=== PATIENT | male | born 1940 | race Caucasian/White ===

== ENCOUNTER 2022-10-04 18:31 | Emergency (ER) | payer MEDICARE, OTHER ==
[~2022-10-04] VITALS: Ht 175.3 cm; Wt 90.4 kg
[2022-10-04 19:26] LABS: Basophils # (auto) 0 10 ^3/uL (0-0.2); Basophils % (auto) 0.7 % (0.0-2.0); Eosinophils # (auto) 0 10 ^3/uL (0-0.8); Eosinophils % (auto) 0.9 % (0.0-7.0); Hematocrit 37.7 % (41.0-53.0); Hemoglobin 12.5 g/dL (13.5-17.5); Lymphocytes # (auto) 1.1 10 ^3/uL (0.4-5.4); Lymphocytes % (auto) 20.9 % (10.0-50.0); Mean Corpuscular Hemoglobin 31.8 pg (28.0-32.0); Mean Corpuscular Hgb Conc. 33.3 g/dL (32.0-36.0); Mean Corpuscular Volume 95.4 fL (80.0-100.0); Monocytes # (auto) 0.6 10 ^3/uL (0-1.3); Monocytes % (auto) 11.2 % (0.0-12.0); Neutrophils # (auto) 3.4 10 ^3/uL (1.6-8.6); Neutrophils % (auto) 66.3 % (37.0-80.0); Nucleated Red Blood Cells % 0.1 %; Red Blood Cells 3.95 10^6/uL (4.5-5.90); Red Cell Distribution Width 14.1 % (11.8-14.3); White Blood Cell 5.1 10^3/uL (4.4-10.8)
[2022-10-04 19:52] LABS: Alanine Aminotransferase 26 U/L (7-40); Albumin 3.4 g/dL (3.2-4.8); Alkaline Phosphatase 80 U/L (46-116); Anion Gap 3.3 (5-15); Aspartate Aminotransferase 24 U/L (13-40); BUN/Creatinine Ratio 32.1 (10.0-20.0); Bilirubin, Total 0.5 mg/dL (0.2-1.0); Blood Urea Nitrogen 44 mg/dL (9-23); Calcium 8.2 mg/dL (8.5-10.1); Carbon Dioxide 27.7 mmol/L (20-30); Chloride 105 mmol/L (98-107); Glucose 115 mg/dL (74-106); Sodium 136 mmol/L (136-145); Total Protein 5.2 g/dL (5.7-8.2)
[2022-10-04] MEDS ORDERED: SODIUM CHLORIDE 0.9% 500 ML IV ONE (20:00)
[2022-10-04 22:35] VITALS: BP 107/71; PULSE 73; RESP 18; TEMP 98; O2SAT 97
== END 2022-10-04 22:42 | disposition home or self-care (01) ==
LOC: EDBD 18:31 → ER 18:31
DX: I95.9 Hypotension, unspecified (principal); E86.0 Dehydration; I10 Essential (primary) hypertension
CPT/HCPCS: 36415; 71045; 80053; 84484; 85025; 93005; 96360; 99285; J7040

== ENCOUNTER 2023-02-16 14:35 | Inpatient (IN) | payer MEDICARE, OTHER ==
[~2023-02-16] VITALS: Ht 175.3 cm; Wt 94.6 kg
[2023-02-16 15:30] LABS: Basophils # (auto) 0 10 ^3/uL (0-0.2); Basophils % (auto) 0.6 % (0.0-2.0); Eosinophils # (auto) 0.1 10 ^3/uL (0-0.8); Eosinophils % (auto) 0.8 % (0.0-7.0); Hematocrit 43.3 % (41.0-53.0); Lymphocytes # (auto) 0.9 10 ^3/uL (0.4-5.4); Lymphocytes % (auto) 12.2 % (10.0-50.0); Mean Corpuscular Hemoglobin 31.8 pg (28.0-32.0); Mean Corpuscular Hgb Conc. 32.3 g/dL (32.0-36.0); Mean Corpuscular Volume 98.4 fL (80.0-100.0); Monocytes # (auto) 0.6 10 ^3/uL (0-1.3); Monocytes % (auto) 7.6 % (0.0-12.0); Neutrophils # (auto) 6.1 10 ^3/uL (1.6-8.6); Neutrophils % (auto) 78.8 % (37.0-80.0); Red Cell Distribution Width 15.2 % (11.8-14.3); White Blood Cell 7.7 10^3/uL (4.4-10.8)
[2023-02-16 15:50] VITALS: PULSE 72; RESP 20; O2SAT 99
[2023-02-16 15:53] LABS: Alanine Aminotransferase 31 U/L (7-40); Albumin 4.1 g/dL (3.2-4.8); Alkaline Phosphatase 77 U/L (46-116); Anion Gap 4 (5-15); Aspartate Aminotransferase 42 U/L (13-40); BUN/Creatinine Ratio 17.6 (10.0-20.0); Blood Urea Nitrogen 28 mg/dL (9-23); Calcium 9.5 mg/dL (8.5-10.1); Carbon Dioxide 30 mmol/L (20-30); Chloride 105 mmol/L (98-107); Glucose 109 mg/dL (74-106); Sodium 139 mmol/L (136-145)
[2023-02-16 15:54] LABS: Bilirubin, Total 0.9 mg/dL (0.2-1.0); Total Protein 6.3 g/dL (5.7-8.2)
[2023-02-16] MEDS ORDERED: HYDROcodone-ACET 5/325MG TAB PO PRN (16:30)
[2023-02-16] MEDS ORDERED: ONDANSETRON HCL 4 MG/2 ML VIAL IV PRN (16:30)
[2023-02-16] MEDS ORDERED: ACETAMINOPHEN 325 MG TAB PO PRN (16:30)
[2023-02-16] MEDS ORDERED: NITROGLYCERIN 0.4 MG SL TAB SL PRN (16:30)
[2023-02-16] MEDS ORDERED: DOCUSATE SOD 100 MG CAP PO PRN (16:30)
[2023-02-16] MEDS ORDERED: MORPHINE SULFATE INJ 2 MG/ml SYRG IV PRN ×2 (16:30)
[2023-02-16] MEDS ORDERED: METO25TA93 PO (17:00)
[2023-02-16] MEDS ORDERED: DONE1TAB88 PO (17:00)
[2023-02-16] MEDS ORDERED: WARF-66 PO (17:00)
[2023-02-16] MEDS ORDERED: BUME1TAB3 PO (17:00)
[2023-02-16] MEDS ORDERED: LOVA40TA72 PO (17:00)
[2023-02-16 17:30] LABS: INR 3.45 (0.9-1.15); Prothrombin Time 33.4 sec (9.3-11.8)
[2023-02-16 20:00] VITALS: PULSE 77; RESP 18; O2SAT 92
[2023-02-16] MEDS: BUMETANIDE 1 MG TAB PO SCH (21:22)
[2023-02-16] MEDS: DONEPEZIL HYDROCHLORIDE 5 MG TAB PO SCH (21:22)
[2023-02-16] MEDS: SODIUM CHLOR 0.9% PF (SALINE LOCK) 10ML VIAL/SYR IV SCH (21:23)
[2023-02-16] MEDS ORDERED: SACU1TAB PO (21:29)
[2023-02-16] MEDS: LOVASTATIN 40 MG PO SCH (21:57)
[2023-02-16] MEDS: SACUBITRIL-VALSARTAN 24mg/26mg TAB PO SCH (22:22)
[2023-02-17] VITALS (15 sets, daily range): BP systolic 85–102; BP diastolic 42–60; PULSE 71–87; RESP 16–18; TEMP 97.3–98.4; O2SAT 93–97
[2023-02-17] MEDS: BUMETANIDE 1 MG TAB PO SCH ×3 (06:00→21:47)
[2023-02-17] MEDS: SODIUM CHLOR 0.9% PF (SALINE LOCK) 10ML VIAL/SYR IV SCH ×3 (06:44→21:48)
[2023-02-17 09:38] LABS: Basophils # (auto) 0 10 ^3/uL (0-0.2); Basophils % (auto) 0.3 % (0.0-2.0); Eosinophils # (auto) 0 10 ^3/uL (0-0.8); Hematocrit 40.2 % (41.0-53.0); Hemoglobin 13.5 g/dL (13.5-17.5); Lymphocytes # (auto) 0.7 10 ^3/uL (0.4-5.4); Lymphocytes % (auto) 7.4 % (10.0-50.0); Mean Corpuscular Hemoglobin 32.5 pg (28.0-32.0); Mean Corpuscular Hgb Conc. 33.5 g/dL (32.0-36.0); Mean Corpuscular Volume 97.2 fL (80.0-100.0); Monocytes # (auto) 0.9 10 ^3/uL (0-1.3); Monocytes % (auto) 9.6 % (0.0-12.0); Neutrophils # (auto) 7.5 10 ^3/uL (1.6-8.6); Neutrophils % (auto) 82.7 % (37.0-80.0); Nucleated Red Blood Cells % 0.1 %; Red Blood Cells 4.14 10^6/uL (4.5-5.90); Red Cell Distribution Width 14.7 % (11.8-14.3)
[2023-02-17 09:52] LABS: INR 3.29 (0.9-1.15)
[2023-02-17] MEDS: METOPROLOL SUCCINATE 25 MG PO SCH (10:00)
[2023-02-17] MEDS: SACUBITRIL-VALSARTAN 24mg/26mg TAB PO SCH ×2 (10:04→21:43)
[2023-02-17 10:16] LABS: Alanine Aminotransferase 26 U/L (7-40); Alkaline Phosphatase 75 U/L (46-116); Anion Gap 7 (5-15); Aspartate Aminotransferase 32 U/L (13-40); Blood Urea Nitrogen 26 mg/dL (9-23); Calcium 9.5 mg/dL (8.5-10.1); Carbon Dioxide 27 mmol/L (20-30); Chloride 106 mmol/L (98-107); Glucose 128 mg/dL (74-106); Sodium 140 mmol/L (136-145)
[2023-02-17 10:17] LABS: Bilirubin, Total 1.5 mg/dL (0.2-1.0); Total Protein 6.2 g/dL (5.7-8.2)
[2023-02-17] MEDS ORDERED: BUDE1AER6 IN (13:01)
[2023-02-17] MEDS: DONEPEZIL HYDROCHLORIDE 5 MG TAB PO SCH (21:44)
[2023-02-17] MEDS: LOVASTATIN 40 MG PO SCH (21:48)
[2023-02-18] VITALS (11 sets, daily range): BP systolic 91–129; BP diastolic 43–87; PULSE 73–88; RESP 17–20; TEMP 36.7; O2SAT 93–100
[2023-02-18] MEDS: BUMETANIDE 1 MG TAB PO SCH ×3 (06:00→22:00)
[2023-02-18] MEDS: SODIUM CHLOR 0.9% PF (SALINE LOCK) 10ML VIAL/SYR IV SCH ×3 (06:20→22:24)
[2023-02-18 09:11] LABS: INR 2.09 (0.9-1.15); Prothrombin Time 20.9 sec (9.3-11.8)
[2023-02-18] MEDS: SACUBITRIL-VALSARTAN 24mg/26mg TAB PO SCH ×2 (10:00→23:12)
[2023-02-18] MEDS: METOPROLOL SUCCINATE 25 MG PO SCH (10:00)
[2023-02-18 14:33] LABS: INR 1.6 (0.9-1.15); Prothrombin Time 16.3 sec (9.3-11.8)
[2023-02-18] MEDS ORDERED: HEPARIN DRIP/D5W 100UNITS/ML 250 ML IV SCH (18:30)
[2023-02-18 21:59] LABS: INR 1.51 (0.9-1.15); Partial Thromboplastin Time 35.5 SEC (24.5-34.5); Prothrombin Time 15.4 sec (9.3-11.8)
[2023-02-18] MEDS: DONEPEZIL HYDROCHLORIDE 5 MG TAB PO SCH (22:00)
[2023-02-18] MEDS: LOVASTATIN 40 MG PO SCH (22:00)
[2023-02-18] MEDS: HEPARIN DRIP/D5W 100UNITS/ML 250 ML IV SCH (23:01)
[2023-02-19 05:00] VITALS: BP 109/62; PULSE 85; RESP 20; TEMP 97.9; O2SAT 96
[2023-02-19] MEDS: SODIUM CHLOR 0.9% PF (SALINE LOCK) 10ML VIAL/SYR IV SCH ×3 (05:53→22:01)
[2023-02-19] MEDS: BUMETANIDE 1 MG TAB PO SCH ×3 (05:53→21:51)
[2023-02-19 06:44] LABS: INR 1.51 (0.9-1.15); Prothrombin Time 15.4 sec (9.3-11.8)
[2023-02-19 06:47] LABS: Partial Thromboplastin Time 76.4 SEC (24.5-34.5)
[2023-02-19 08:00] VITALS: BP 112/63; PULSE 76; PULSE 77; RESP 21; TEMP 97.5; O2SAT 93
[2023-02-19] MEDS ORDERED: ceFAZolin 2 GM/D5W100ml 100 ML IV ONE (09:40)
[2023-02-19] MEDS: METOPROLOL SUCCINATE 25 MG PO SCH (10:00)
[2023-02-19] MEDS: SACUBITRIL-VALSARTAN 24mg/26mg TAB PO SCH ×2 (10:00→21:45)
[2023-02-19] MEDS ORDERED: ACETAMINOPHEN IV 100 ML IV ONE (10:16)
[2023-02-19] MEDS ORDERED: fentaNYL CITRATE 100 MCG/2 ML VL ONE (10:21)
[2023-02-19] MEDS ORDERED: PROPOFOL 10 MG/ML 20 ML IV ONE (10:22)
[2023-02-19] MEDS ORDERED: ePHEDrine SULFATE 50 MG/ML AMP ONE (10:38)
[2023-02-19] MEDS ORDERED: ROPIVACAINE 0.5% (5MG/ML) 20ML AMPULE IJ ONE (10:59)
[2023-02-19] MEDS ORDERED: MEPERIDINE HCL (25 MG/ML) 1ML VIAL ONE (11:02)
[2023-02-19] MEDS ORDERED: LACTATED RINGER'S 1,000 ML IV SCH (11:45)
[2023-02-19 11:51] VITALS: O2SAT 100
[2023-02-19 16:00] VITALS: BP 113/71; PULSE 84; RESP 20; TEMP 97.4; O2SAT 90
[2023-02-19] MEDS: ceFAZolin 1GM/50ML 50 ML IV SCH (17:54)
[2023-02-19 19:16] LABS: Alanine Aminotransferase 27 U/L (7-40); Albumin 3.6 g/dL (3.2-4.8); Alkaline Phosphatase 69 U/L (46-116); Anion Gap 6 (5-15); Aspartate Aminotransferase 30 U/L (13-40); BUN/Creatinine Ratio 26.7 (10.0-20.0); Bilirubin, Total 0.9 mg/dL (0.2-1.0); Blood Urea Nitrogen 28 mg/dL (9-23); Calcium 9.2 mg/dL (8.5-10.1); Carbon Dioxide 29 mmol/L (20-30); Chloride 104 mmol/L (98-107); Glucose 112 mg/dL (74-106); Potassium 3.7 mmol/L (3.5-5.1); Sodium 139 mmol/L (136-145); Total Protein 5.8 g/dL (5.7-8.2)
[2023-02-19 20:00] VITALS: PULSE 82; PULSE 88; RESP 18; O2SAT 94
[2023-02-19] MEDS: HEPARIN DRIP/D5W 100UNITS/ML 250 ML IV SCH (21:33)
[2023-02-19] MEDS: DONEPEZIL HYDROCHLORIDE 5 MG TAB PO SCH (21:45)
[2023-02-19 21:55] VITALS: BP 126/64; PULSE 88; RESP 18; TEMP 97.5; O2SAT 94
[2023-02-19] MEDS: LOVASTATIN 40 MG PO SCH (22:00)
[2023-02-20] VITALS (7 sets, daily range): BP systolic 86–98; BP diastolic 44–53; PULSE 68–91; RESP 18–22; TEMP 97.9–98.7; O2SAT 90–95
[2023-02-20 01:58] LABS: INR 1.57 (0.9-1.15); Partial Thromboplastin Time 66.3 SEC (24.5-34.5)
[2023-02-20] MEDS: ceFAZolin 1GM/50ML 50 ML IV SCH ×2 (02:00→10:09)
[2023-02-20] MEDS: SODIUM CHLOR 0.9% PF (SALINE LOCK) 10ML VIAL/SYR IV SCH ×3 (05:34→21:40)
[2023-02-20] MEDS: BUMETANIDE 1 MG TAB PO SCH ×3 (06:16→23:22)
[2023-02-20 07:06] LABS: Anion Gap 8 (5-15); Carbon Dioxide 25 mmol/L (20-30); Chloride 106 mmol/L (98-107); Potassium 4.2 mmol/L (3.5-5.1); Sodium 139 mmol/L (136-145)
[2023-02-20 07:12] LABS: BUN/Creatinine Ratio 24.7 (10.0-20.0); Blood Urea Nitrogen 23 mg/dL (9-23); Glucose 154 mg/dL (74-106)
[2023-02-20 07:15] LABS: INR 1.54 (0.9-1.15); Prothrombin Time 15.7 sec (9.3-11.8)
[2023-02-20 07:49] LABS: Partial Thromboplastin Time 74.2 SEC (24.5-34.5)
[2023-02-20] MEDS: METOPROLOL SUCCINATE 25 MG PO SCH (10:00)
[2023-02-20] MEDS: SACUBITRIL-VALSARTAN 24mg/26mg TAB PO SCH ×2 (10:10→22:00)
[2023-02-20 12:09] LABS: Basophils # (auto) 0 10 ^3/uL (0-0.2); Basophils % (auto) 0.1 % (0.0-2.0); Eosinophils # (auto) 0 10 ^3/uL (0-0.8); Eosinophils % (auto) 0.1 % (0.0-7.0); Hematocrit 32.8 % (41.0-53.0); Hemoglobin 10.8 g/dL (13.5-17.5); Lymphocytes # (auto) 0.6 10 ^3/uL (0.4-5.4); Lymphocytes % (auto) 5.8 % (10.0-50.0); Mean Corpuscular Hemoglobin 32.4 pg (28.0-32.0); Monocytes # (auto) 1.3 10 ^3/uL (0-1.3); Monocytes % (auto) 11.7 % (0.0-12.0); Neutrophils # (auto) 8.9 10 ^3/uL (1.6-8.6); Neutrophils % (auto) 82.3 % (37.0-80.0); Nucleated Red Blood Cells % 0.1 %; Red Blood Cells 3.35 10^6/uL (4.5-5.90); Red Cell Distribution Width 14.9 % (11.8-14.3); White Blood Cell 10.8 10^3/uL (4.4-10.8)
[2023-02-20 12:44] LABS: INR 1.6 (0.9-1.15); Prothrombin Time 16.3 sec (9.3-11.8)
[2023-02-20 12:54] LABS: Partial Thromboplastin Time 93.6 SEC (24.5-34.5)
[2023-02-20] MEDS: HEPARIN DRIP/D5W 100UNITS/ML 250 ML IV SCH ×2 (14:57→22:55)
[2023-02-20] MEDS ORDERED: LACTULOSE 20Gm/30ML SOLN PO ONE (16:30)
[2023-02-20] MEDS ORDERED: WARFARIN SODIUM 5 MG TAB PO ONE (17:00)
[2023-02-20] MEDS: DONEPEZIL HYDROCHLORIDE 5 MG TAB PO SCH (21:40)
[2023-02-20 21:49] LABS: INR 1.43 (0.9-1.15); Prothrombin Time 14.7 sec (9.3-11.8)
[2023-02-21] VITALS (8 sets, daily range): BP systolic 94–108; BP diastolic 51–66; PULSE 86–109; RESP 16–20; TEMP 97.8–98.5; O2SAT 88–95
[2023-02-21 02:56] LABS: Basophils # (auto) 0 10 ^3/uL (0-0.2); Basophils % (auto) 0.3 % (0.0-2.0); Eosinophils # (auto) 0 10 ^3/uL (0-0.8); Eosinophils % (auto) 0.1 % (0.0-7.0); Hemoglobin 10.3 g/dL (13.5-17.5); Lymphocytes # (auto) 1.2 10 ^3/uL (0.4-5.4); Lymphocytes % (auto) 9.6 % (10.0-50.0); Mean Corpuscular Hemoglobin 31.4 pg (28.0-32.0); Mean Corpuscular Hgb Conc. 32.2 g/dL (32.0-36.0); Mean Corpuscular Volume 97.6 fL (80.0-100.0); Monocytes # (auto) 1.7 10 ^3/uL (0-1.3); Monocytes % (auto) 12.8 % (0.0-12.0); Neutrophils # (auto) 10.1 10 ^3/uL (1.6-8.6); Neutrophils % (auto) 77.2 % (37.0-80.0); Red Blood Cells 3.28 10^6/uL (4.5-5.90)
[2023-02-21 03:09] LABS: INR 1.44 (0.9-1.15); Partial Thromboplastin Time 63.5 SEC (24.5-34.5); Prothrombin Time 14.8 sec (9.3-11.8)
[2023-02-21] MEDS ORDERED: SPIR25TA PO (03:34)
[2023-02-21] MEDS ORDERED: DOXA1TAB28 PO (03:34)
[2023-02-21] MEDS: BUMETANIDE 1 MG TAB PO SCH ×3 (05:43→16:32)
[2023-02-21] MEDS: SODIUM CHLOR 0.9% PF (SALINE LOCK) 10ML VIAL/SYR IV SCH ×3 (05:44→21:47)
[2023-02-21 10:36] LABS: INR 1.48 (0.9-1.15); Partial Thromboplastin Time 61.8 SEC (24.5-34.5); Prothrombin Time 15.1 sec (9.3-11.8)
[2023-02-21] MEDS: SACUBITRIL-VALSARTAN 24mg/26mg TAB PO SCH ×2 (10:44→21:44)
[2023-02-21] MEDS: METOPROLOL SUCCINATE XL 50 MG TAB PO SCH (10:48)
[2023-02-21 12:07] LABS: COVID19 ANTIGEN SOFIA FIA NEGATIVE (NEGATIVE)
[2023-02-21] MEDS ORDERED: WARFARIN SODIUM 2.5 MG TAB PO ONE (17:00)
[2023-02-21] MEDS: ATORVASTATIN 20 MG TAB PO SCH (21:44)
[2023-02-21] MEDS: DONEPEZIL HYDROCHLORIDE 5 MG TAB PO SCH (21:44)
[2023-02-22] VITALS (7 sets, daily range): BP systolic 93–117; BP diastolic 51–64; PULSE 79–107; RESP 16–18; TEMP 97.9–98.2; O2SAT 90–95
[2023-02-22] MEDS: SODIUM CHLOR 0.9% PF (SALINE LOCK) 10ML VIAL/SYR IV SCH ×3 (05:32→21:54)
[2023-02-22] MEDS: HEPARIN DRIP/D5W 100UNITS/ML 250 ML IV SCH (05:32)
[2023-02-22 06:52] LABS: Basophils # (auto) 0 10 ^3/uL (0-0.2); Basophils % (auto) 0.2 % (0.0-2.0); Eosinophils # (auto) 0 10 ^3/uL (0-0.8); Eosinophils % (auto) 0.2 % (0.0-7.0); Hematocrit 31.2 % (41.0-53.0); Hemoglobin 10.3 g/dL (13.5-17.5); Lymphocytes % (auto) 10.3 % (10.0-50.0); Mean Corpuscular Hemoglobin 32.5 pg (28.0-32.0); Mean Corpuscular Hgb Conc. 33.1 g/dL (32.0-36.0); Mean Corpuscular Volume 98.2 fL (80.0-100.0); Monocytes # (auto) 1.1 10 ^3/uL (0-1.3); Monocytes % (auto) 11.7 % (0.0-12.0); Neutrophils # (auto) 7.3 10 ^3/uL (1.6-8.6); Neutrophils % (auto) 77.6 % (37.0-80.0); Nucleated Red Blood Cells % 0.1 %; Red Blood Cells 3.18 10^6/uL (4.5-5.90); Red Cell Distribution Width 14.5 % (11.8-14.3); White Blood Cell 9.4 10^3/uL (4.4-10.8)
[2023-02-22 07:11] LABS: INR 1.8 (0.9-1.15); Partial Thromboplastin Time 47.2 SEC (24.5-34.5); Prothrombin Time 18.2 sec (9.3-11.8)
[2023-02-22] MEDS ORDERED: HEPARIN DRIP/D5W 100UNITS/ML 250 ML IV SCH ×2 (08:00→22:00)
[2023-02-22] MEDS: SACUBITRIL-VALSARTAN 24mg/26mg TAB PO SCH ×2 (09:12→21:54)
[2023-02-22] MEDS: METOPROLOL SUCCINATE XL 50 MG TAB PO SCH (09:14)
[2023-02-22] MEDS: BUMETANIDE 1 MG TAB PO SCH ×4 (09:15→23:08)
[2023-02-22] MEDS ORDERED: WARFARIN SODIUM 2.5 MG TAB PO ONE (17:00)
[2023-02-22] MEDS ORDERED: WARFARIN SODIUM 5 MG TAB PO ONE (17:00)
[2023-02-22 21:27] LABS: INR 2.21 (0.9-1.15)
[2023-02-22 21:48] LABS: Partial Thromboplastin Time 79.4 SEC (24.5-34.5)
[2023-02-22] MEDS: ATORVASTATIN 20 MG TAB PO SCH (21:54)
[2023-02-22] MEDS: DONEPEZIL HYDROCHLORIDE 5 MG TAB PO SCH (21:54)
[2023-02-23 04:05] LABS: Basophils # (auto) 0 10 ^3/uL (0-0.2); Basophils % (auto) 0.4 % (0.0-2.0); Eosinophils # (auto) 0 10 ^3/uL (0-0.8); Eosinophils % (auto) 0.6 % (0.0-7.0); Hematocrit 31.8 % (41.0-53.0); Hemoglobin 10.6 g/dL (13.5-17.5); Lymphocytes # (auto) 1.1 10 ^3/uL (0.4-5.4); Lymphocytes % (auto) 12.9 % (10.0-50.0); Mean Corpuscular Hemoglobin 32.4 pg (28.0-32.0); Mean Corpuscular Hgb Conc. 33.4 g/dL (32.0-36.0); Mean Corpuscular Volume 96.8 fL (80.0-100.0); Monocytes # (auto) 0.9 10 ^3/uL (0-1.3); Monocytes % (auto) 10.6 % (0.0-12.0); Neutrophils # (auto) 6.2 10 ^3/uL (1.6-8.6); Neutrophils % (auto) 75.5 % (37.0-80.0); Nucleated Red Blood Cells % 0.2 %; Red Blood Cells 3.29 10^6/uL (4.5-5.90); Red Cell Distribution Width 15.1 % (11.8-14.3); White Blood Cell 8.2 10^3/uL (4.4-10.8)
[2023-02-23 04:33] LABS: INR 2.52 (0.9-1.15); Prothrombin Time 24.9 sec (9.3-11.8)
[2023-02-23 04:49] LABS: Partial Thromboplastin Time 78.6 SEC (24.5-34.5)
[2023-02-23 05:00] VITALS: BP 92/52; PULSE 79; RESP 18; TEMP 98.3; O2SAT 97
[2023-02-23] MEDS: SODIUM CHLOR 0.9% PF (SALINE LOCK) 10ML VIAL/SYR IV SCH ×2 (06:13→18:01)
[2023-02-23] MEDS: SACUBITRIL-VALSARTAN 24mg/26mg TAB PO SCH (09:05)
[2023-02-23] MEDS: METOPROLOL SUCCINATE XL 50 MG TAB PO SCH (09:07)
[2023-02-23] MEDS: BUMETANIDE 1 MG TAB PO SCH ×2 (09:08→16:00)
[2023-02-23 09:09] VITALS: BP 103/59; PULSE 82; RESP 18; TEMP 97.9; O2SAT 93
[2023-02-23 11:31] LABS: INR 2.93 (0.9-1.15); Partial Thromboplastin Time 42.4 SEC (24.5-34.5); Prothrombin Time 28.7 sec (9.3-11.8)
[2023-02-23 12:37] VITALS: BP 95/50; PULSE 74; RESP 18; TEMP 97.7; O2SAT 94
[2023-02-23 16:43] VITALS: BP 96/54; PULSE 72; RESP 20; TEMP 97.3; O2SAT 97
[2023-02-23] MEDS ORDERED: WARFARIN SODIUM 2 MG TAB PO ONE (17:45)
== END 2023-02-23 20:59 | DRG 480 ==
LOC: ER 14:35 → EDBD 14:35 → TELE 17:00 → TELE-WESTW 17:08
PROVIDERS: ADMIT Nurse Practitioner Family; ATTEND Family Medicine
PROC: 30233K1 Transfusion of Nonautologous Frozen Plasma into Peripheral Vein, Percutaneous Approach (ICD-10-PCS; 2023-02-17)
PROC: BQ11ZZZ Fluoroscopy of Left Hip (ICD-10-PCS; 2023-02-19)
PROC: 0QS734Z Reposition Left Upper Femur with Internal Fixation Device, Percutaneous Approach (ICD-10-PCS; principal; 2023-02-19 10:25)
DX: S72.142A Displaced intertrochanteric fracture of left femur, initial encounter for closed fracture (principal); I50.43 Acute on chronic combined systolic (congestive) and diastolic (congestive) heart failure; J96.01 Acute respiratory failure with hypoxia; J44.1 Chronic obstructive pulmonary disease with (acute) exacerbation; N17.9 Acute kidney failure, unspecified; I11.0 Hypertensive heart disease with heart failure; E66.9 Obesity, unspecified; E78.00 Pure hypercholesterolemia, unspecified; T45.515A Adverse effect of anticoagulants, initial encounter; Z60.2 Problems related to living alone; W18.39XA Other fall on same level, initial encounter; F03.90 Unspecified dementia, unspecified severity, without behavioral disturbance, psychotic disturbance, mood disturbance, and anxiety; Z68.31 Body mass index [BMI] 31.0-31.9, adult; Z95.0 Presence of cardiac pacemaker; Z95.2 Presence of prosthetic heart valve; Y93.89 Activity, other specified; Y92.098 Other place in other non-institutional residence as the place of occurrence of the external cause; Y99.8 Other external cause status
CPT/HCPCS: 36415; 71045; 73501; 74176; 76000; 80048; 80053; 84484; 85025; 85049; 85610; 85730; 86850; 86900; 86901; 87426; 93005; 93306; 97110; 97116; 97163; 97530; G0378; J0131; J2704; J3490

== ENCOUNTER 2023-10-07 09:00 | Inpatient (IN) | payer MEDICARE, MEDICAID ==
[~2023-10-07] VITALS: Ht 167.6 cm; Wt 86.7 kg
[~2023-10-07 09:00] MED LIST: BUDE1AER6 IN; BUME1TAB3 PO; DONE1TAB88 PO; DORZ2SOL18 EACHEYE; DOXA1TAB28 PO; DOXA1TAB42 PO; FLUT1AER3 IN; GABA-1308 PO; LAMO150T26 PO; LOVA40TA72 PO; METO25TA93 PO; PANT40T PO; SACU1TAB PO; SPIR25TA PO; WARF-66 PO
[2023-10-07 09:15] VITALS: PULSE 96; RESP 15; O2SAT 92
[2023-10-07 09:34] LABS: Basophils # (auto) 0 10 ^3/uL (0-0.2); Basophils % (auto) 0.8 % (0.0-2.0); Eosinophils # (auto) 0.1 10 ^3/uL (0-0.8); Eosinophils % (auto) 2.3 % (0.0-7.0); Hematocrit 41.3 % (41.0-53.0); Hemoglobin 13.7 g/dL (13.5-17.5); Lymphocytes # (auto) 1.3 10 ^3/uL (0.4-5.4); Lymphocytes % (auto) 22.8 % (10.0-50.0); Mean Corpuscular Hemoglobin 32.4 pg (28.0-32.0); Mean Corpuscular Hgb Conc. 33.3 g/dL (32.0-36.0); Mean Corpuscular Volume 97.4 fL (80.0-100.0); Monocytes # (auto) 0.5 10 ^3/uL (0-1.3); Monocytes % (auto) 9.2 % (0.0-12.0); Neutrophils # (auto) 3.6 10 ^3/uL (1.6-8.6); Neutrophils % (auto) 64.9 % (37.0-80.0); Nucleated Red Blood Cells % 0.1 %; Platelet Count (auto) 209 10^3/uL (140-450); Red Blood Cells 4.24 10^6/uL (4.5-5.90); White Blood Cell 5.6 10^3/uL (4.4-10.8)
[2023-10-07 09:36] LABS: Chloride 105 mmol/L (98-107); Potassium 3.2 mmol/L (3.5-5.1); Sodium 141 mmol/L (136-145)
[2023-10-07 09:37] LABS: Anion Gap 4 (5-15); Calcium 9.6 mg/dL (8.7-10.4); Carbon Dioxide 32 mmol/L (20-30)
[2023-10-07 09:42] LABS: BUN/Creatinine Ratio 18.8 (10.0-20.0); Blood Urea Nitrogen 19 mg/dL (9-23); Glucose 127 mg/dL (74-106)
[2023-10-07 09:49] LABS: INR 3.03 (0.9-1.15); Partial Thromboplastin Time 39.9 SEC (24.5-34.5); Prothrombin Time 29.6 sec (9.3-11.8)
[2023-10-07 11:08] LABS: Urine Bacteria None Seen /hpf (None Seen)
[2023-10-07 11:24] LABS: Urine Blood TRACE /uL (Negative); Urine Clarity Clear (Clear); Urine Color Light-Yellow (Yellow); Urine Hyaline Cast FEW /lpf (0 - 2); Urine Protein, UAD Negative (Negative); Urine Specific Gravity 1.009 (1.001-1.035); Urine Urobilinogen Normal (Negative); Urine WBC 2 /hpf (0 - 3); Urine pH 5.5 (5.0-9.0)
[2023-10-07] MEDS ORDERED: DOCUSATE SOD 100 MG CAP PO PRN (12:30)
[2023-10-07] MEDS ORDERED: NITROGLYCERIN 0.4 MG SL TAB SL PRN (12:30)
[2023-10-07] MEDS ORDERED: MORPHINE SULFATE INJ 2 MG/ml SYRG IV PRN (12:30)
[2023-10-07] MEDS ORDERED: ONDANSETRON HCL 4 MG/2 ML VIAL IV PRN (12:30)
[2023-10-07 16:44] VITALS: RESP 16; O2SAT 97
[2023-10-07 16:46] VITALS: BP 92/59; PULSE 94; RESP 17; TEMP 97.6; O2SAT 97
[2023-10-07] MEDS: BUMETANIDE 1 MG TAB PO SCH (17:50)
[2023-10-07 18:39] LABS: Phosphorus 2.9 mg/dL (2.4-5.1)
[2023-10-07 20:00] VITALS: O2SAT 98
[2023-10-07 21:00] VITALS: BP_SYST 134; BP_SYST 137; BP_DIAS 73; BP_DIAS 74; PULSE 74; PULSE 84; RESP 19; TEMP 98.1; TEMP 98.5; O2SAT 96; O2SAT 98
[2023-10-07] MEDS: SACUBITRIL-VALSARTAN 24mg/26mg TAB PO SCH (21:35)
[2023-10-07] MEDS: ATORVASTATIN 20 MG TAB PO SCH (21:36)
[2023-10-07] MEDS: POTASSIUM CHL 20 Meq TABLET PO ONE (21:36)
[2023-10-07] MEDS: DOXAZOSIN MESYL 2 MG TAB PO SCH (21:37)
[2023-10-08] VITALS (8 sets, daily range): BP systolic 47–121; BP diastolic 47–63; PULSE 63–111; RESP 17–22; TEMP 97.4–99; O2SAT 95–98
[2023-10-08 06:15] LABS: Basophils # (auto) 0 10 ^3/uL (0-0.2); Basophils % (auto) 0.8 % (0.0-2.0); Eosinophils # (auto) 0.1 10 ^3/uL (0-0.8); Hemoglobin 12.9 g/dL (13.5-17.5); Lymphocytes # (auto) 1.1 10 ^3/uL (0.4-5.4); Mean Corpuscular Hemoglobin 32.9 pg (28.0-32.0); Mean Corpuscular Hgb Conc. 33.9 g/dL (32.0-36.0); Mean Corpuscular Volume 97.2 fL (80.0-100.0); Monocytes # (auto) 0.5 10 ^3/uL (0-1.3); Monocytes % (auto) 10.1 % (0.0-12.0); Neutrophils % (auto) 63.1 % (37.0-80.0); Nucleated Red Blood Cells % 0.1 %; Platelet Count (auto) 177 10^3/uL (140-450); Red Blood Cells 3.91 10^6/uL (4.5-5.90); Red Cell Distribution Width 15.1 % (11.8-14.3); White Blood Cell 4.8 10^3/uL (4.4-10.8)
[2023-10-08 06:36] LABS: Alanine Aminotransferase 13 U/L (7-40); Albumin 3.7 g/dL (3.2-4.8); Alkaline Phosphatase 116 U/L (46-116); Anion Gap 2 (5-15); Aspartate Aminotransferase 21 U/L (13-40); BUN/Creatinine Ratio 21.5 (10.0-20.0); Bilirubin, Total 0.9 mg/dL (0.2-1.0); Blood Urea Nitrogen 20 mg/dL (9-23); Calcium 9.6 mg/dL (8.7-10.4); Carbon Dioxide 32 mmol/L (20-30); Chloride 108 mmol/L (98-107); Glucose 103 mg/dL (74-106); Potassium 4.1 mmol/L (3.5-5.1); Sodium 142 mmol/L (136-145); Total Protein 6.1 g/dL (5.7-8.2)
[2023-10-08 06:56] LABS: INR 2.31 (0.9-1.15)
[2023-10-08] MEDS: SPIRONOLACTONE 25 MG TAB PO SCH (10:33)
[2023-10-08] MEDS: DONEPEZIL HYDROCHLORIDE 5 MG TAB PO SCH (10:34)
[2023-10-08] MEDS: METOPROLOL SUCCINATE XL 50 MG TAB PO SCH (10:49)
[2023-10-08] MEDS: WARFARIN SODIUM 1 MG TAB PO ONE (17:42)
[2023-10-09] VITALS (8 sets, daily range): BP systolic 87–138; BP diastolic 41–60; PULSE 66–113; RESP 16–18; TEMP 97.6–98.4; O2SAT 95–98
[2023-10-09 06:20] LABS: INR 1.69 (0.9-1.15); Prothrombin Time 17.2 sec (9.3-11.8)
[2023-10-09 11:54] LABS: Basophils # (auto) 0 10 ^3/uL (0-0.2); Basophils % (auto) 0.9 % (0.0-2.0); Eosinophils # (auto) 0.1 10 ^3/uL (0-0.8); Eosinophils % (auto) 1.9 % (0.0-7.0); Hematocrit 38.8 % (41.0-53.0); Hemoglobin 13.1 g/dL (13.5-17.5); Lymphocytes # (auto) 1.1 10 ^3/uL (0.4-5.4); Lymphocytes % (auto) 23.5 % (10.0-50.0); Mean Corpuscular Hemoglobin 32.8 pg (28.0-32.0); Mean Corpuscular Hgb Conc. 33.7 g/dL (32.0-36.0); Mean Corpuscular Volume 97.3 fL (80.0-100.0); Monocytes # (auto) 0.5 10 ^3/uL (0-1.3); Monocytes % (auto) 9.6 % (0.0-12.0); Neutrophils % (auto) 64.1 % (37.0-80.0); Nucleated Red Blood Cells % 0.1 %; Platelet Count (auto) 174 10^3/uL (140-450); Red Blood Cells 3.98 10^6/uL (4.5-5.90); Red Cell Distribution Width 14.8 % (11.8-14.3); White Blood Cell 4.7 10^3/uL (4.4-10.8)
[2023-10-09] MEDS ORDERED: FINA5TAB4 PO (16:32)
[2023-10-09] MEDS: WARFARIN SODIUM 1 MG TAB PO ONE (17:11)
[2023-10-10 05:05] VITALS: BP 104/62; PULSE 79; RESP 16; TEMP 97.5; O2SAT 97
[2023-10-10 08:00] VITALS: PULSE 76; PULSE 84; RESP 18
[2023-10-10 08:07] LABS: Basophils # (auto) 0.1 10 ^3/uL (0-0.2); Basophils % (auto) 0.9 % (0.0-2.0); Eosinophils # (auto) 0.1 10 ^3/uL (0-0.8); Eosinophils % (auto) 1.4 % (0.0-7.0); Hematocrit 40.9 % (41.0-53.0); Hemoglobin 13.8 g/dL (13.5-17.5); Lymphocytes # (auto) 1.4 10 ^3/uL (0.4-5.4); Lymphocytes % (auto) 22.1 % (10.0-50.0); Mean Corpuscular Hemoglobin 32.9 pg (28.0-32.0); Mean Corpuscular Hgb Conc. 33.8 g/dL (32.0-36.0); Mean Corpuscular Volume 97.5 fL (80.0-100.0); Monocytes # (auto) 0.5 10 ^3/uL (0-1.3); Monocytes % (auto) 8.3 % (0.0-12.0); Neutrophils # (auto) 4.1 10 ^3/uL (1.6-8.6); Neutrophils % (auto) 67.3 % (37.0-80.0); Platelet Count (auto) 189 10^3/uL (140-450); Red Cell Distribution Width 14.3 % (11.8-14.3); White Blood Cell 6.1 10^3/uL (4.4-10.8)
[2023-10-10 08:30] VITALS: BP 99/60; PULSE 76; RESP 18; TEMP 97.9; O2SAT 96
[2023-10-10 08:37] LABS: INR 1.69 (0.9-1.15); Prothrombin Time 17.6 sec (9.3-11.8)
[2023-10-10 14:22] VITALS: BP 101/64; PULSE 79; RESP 18; TEMP 97.8; O2SAT 97
[2023-10-10] MEDS ORDERED: WARFARIN SODIUM 5 MG TAB PO ONE (17:00)
== END 2023-10-10 15:57 | DRG 813 ==
LOC: EDBD 09:00 → ER 09:00 → OVERFLOW 12:32 → WEST WING 15:30 → TELE-WESTW 10-08 16:39
PROVIDERS: ADMIT Nurse Practitioner Family; ATTEND Internal Medicine
DX: D68.8 Other specified coagulation defects (principal); I50.33 Acute on chronic diastolic (congestive) heart failure; D68.69 Other thrombophilia; I48.20 Chronic atrial fibrillation, unspecified; E87.6 Hypokalemia; I11.0 Hypertensive heart disease with heart failure; N40.0 Benign prostatic hyperplasia without lower urinary tract symptoms; T45.515A Adverse effect of anticoagulants, initial encounter; F03.90 Unspecified dementia, unspecified severity, without behavioral disturbance, psychotic disturbance, mood disturbance, and anxiety; E78.5 Hyperlipidemia, unspecified; J44.9 Chronic obstructive pulmonary disease, unspecified; Z86.73 Personal history of transient ischemic attack (TIA), and cerebral infarction without residual deficits; Y92.89 Other specified places as the place of occurrence of the external cause; Z79.01 Long term (current) use of anticoagulants
CPT/HCPCS: 36415; 71045; 80048; 80053; 81001; 83735; 83880; 84100; 84484; 85025; 85610; 85730; 93005; 99291; G0378